=== PATIENT | female | born 1970 | race Caucasian/White ===

== ENCOUNTER 2025-03-05 04:03 | Emergency (ER) | payer OTHER, SELFPAY ==
[2025-03-05 04:08] VITALS: BP 114/77
--- NOTE | 2025-03-05 04:52 | ED.GENMED ---
History of Present Illness
General
Chief Complaint: Urinary Symptoms
Time Seen by Provider: 03/05/25 04:52
History of Present Illness
History of Present Illness:
TIME OF INITIAL EVALUATION
- 4:55 AM
REVIEW OF OLD RECORDS
- The patient has had ITP. No significant old records in [facility] available for review.
Note:
CHIEF COMPLAINT(S)
Frequent urination with pain and bleeding.
HISTORY OF PRESENT ILLNESS
The patient is a 54-year-old female who reports waking up around 2:00 AM with frequent urination, approximately every five minutes, accompanied by significant pain in the vaginal region. Around 3:00 AM, the patient noticed blood upon wiping.
Considering these symptoms, she presented to the emergency department. The patient has a history of idiopathic thrombocytopenic purpura (ITP) with platelet levels typically around 100,000 per microliter, which she describes as stable. She denies any
current rash or petechiae. The patient is uncertain whether the source of bleeding is urinary or vaginal. Upon examination, she reports a decrease in pain intensity to a level of 5 out of 10. She denies any back pain and, upon abdominal examination,
reports no significant tenderness.
PHYSICAL EXAM
- General: Well appearing in no distress
- HEENT: Moist oral mucosa
- Abdomen: Soft with no peritoneal signs, no tenderness, no CVA tenderness
- : With front edger in room, registration, bimanual exam was performed which was unremarkable, there was no blood in the vagina noted
- Neurologic: Excellent strength all extremities, no coordination deficits
- Psychiatric: Appropriate mental status, normal insight and judgement
- Extremities: Nontender, no edema, moves all extremities equally
- Skin: No rash, no lesions
PROBLEM LIST
- Acute: Suspected urinary tract infection with possible hematuria.
PLAN
A urine sample has been collected and sent for analysis. The plan is to re-evaluate the patient once the urine test results are available to determine the presence of a urinary tract infection and to guide further management.
DIFFERENTIAL DIAGNOSIS
The Differential Diagnosis includes, in no particular order and is not limited to:
1. Urinary Tract Infection
2. Hemorrhagic Cystitis
3. Vaginal Atrophy or Lesions
4. Urethral Diverticulum
5. Interstitial Cystitis
6. Bladder Tumor
7. Nephrolithiasis
8. Gynecological Malignancy
9. Coagulation Disorder (given history of ITP)
10. Vaginal Infection
RADIOLOGY
- Not indicated
EKG
-
LABS
- Urinalysis shows signs of blood and infection
UPDATE
-SUMMARY OF ENCOUNTER
The patient, a 54-year-old female with a history of idiopathic thrombocytopenic purpura (ITP), presented to the emergency department with frequent urination, pain, and bleeding. Urinalysis indicated signs of blood and infection, leading to the
diagnosis of hemorrhagic cystitis. The plan included the administration of cefalexin and the prescription of phenazopyridine for pain management.
DISPOSITION
Discharge.
ASSESSMENT
The patient is suspected to have hemorrhagic cystitis, likely secondary to a urinary tract infection (UTI). The bleeding could be exacerbated by her history of ITP, although her platelet levels are generally stable.
EMERGENCY TREATMENTS ADMINISTERED
The patient received an initial dose of cefalexin in the emergency department.
PLAN
The patient was prescribed a course of cefalexin to address the infection and phenazopyridine for pain relief. Arrange follow-up with a urologist to evaluate the persistent microscopic hematuria. Encourage the patient to return if there is excessive
bleeding or if she feels unwell.
INDEPENDENT REVIEW OF LABS AND INTERPRETATION OF TESTS
My independent review of urinalysis is the presence of blood and signs of infection.
PATIENT EDUCATION AND COUNSELING
The patient was informed about the side effect of phenazopyridine, which may cause orange discoloration of the urine. She was advised to complete the full course of antibiotics and discontinue phenazopyridine once her pain subsides. Discussed that
while blood in the urine can be common with infections, follow-up with a urologist is important.
FOLLOW-UP INSTRUCTIONS
The patient was advised to schedule a follow-up appointment with a urologist. She was also instructed to return to the hospital if the bleeding becomes significant or if she experiences symptoms such as dizziness or feeling unwell.
MEDICATION RECONCILIATION
- Cefalexin prescribed to complete the infection treatment course.
- Phenazopyridine prescribed for pain management.
MEDICAL DECISION MAKING
-Complexity of Data Reviewed: Chronic conditions affecting care include idiopathic thrombocytopenic purpura (ITP). Differential diagnosis list considered:
1. Urinary Tract Infection
2. Hemorrhagic Cystitis
3. Vaginal Atrophy or Lesions
4. Urethral Diverticulum
5. Interstitial Cystitis
6. Bladder Tumor
7. Nephrolithiasis
8. Gynecological Malignancy
9. Coagulation Disorder
10. Vaginal Infection
-Data:
Category 1
My independent review of urinalysis indicates blood in the urine as well as signs of infection.
-Risk:
Prescription medication was prescribed, including cefalexin and phenazopyridine. The potential for complications from the UTI due to the patients ITP history was considered, but her stable platelet count suggests that she is presently safe for
outpatient care with close follow-up.
DIAGNOSIS
- Hemorrhagic cystitis (ICD-10: N30.81)
- Urinary tract infection (ICD-10: N39.0)
Phy Exam
Physical Exam
Physical Exam:
See HPI
Course
Orders/Labs/Results
Orders:
Orders
03/05/25 04:18
Urinalysis Reflex To Culture Urgent
Date Specimen was Collected: 03/05/25
Time Specimen was Collected: 04:13
Urine Microscopic Reflex Cult Urgent
Urine Culture Urgent
MANOJ Source: U
Specimen Description:
Date Specimen was Collected: 03/05/25
Time Specimen was Collected: 04:13
03/05/25 05:12
Cephalexin Monohydrate [Keflex] 500 mg PO NOW STA
Phenazopyridine HCl [Pyridium] 200 mg PO NOW STA
Abnormal Lab Results
03/05/25
04:18
Ur Occult Blood Reflex 4+ A
(Negative)
Leukocyte Esterase Rfl 3+ A
(Negative)
Urine Albumin (Reflex) 3+ A
(Neg - Trace)
Vital Signs
Initial and Last Documented VS:
Initial Vital Signs
Temp Pulse Resp BP Pulse Ox
36.6 C 70 14 114/77 98
03/05/25 04:08 03/05/25 04:08 03/05/25 04:08 03/05/25 04:08 03/05/25 04:08
Last Documented Vital Signs
Temp Pulse Resp BP Pulse Ox
36.6 C 70 14 114/77 98
03/05/25 04:08 03/05/25 04:08 03/05/25 04:08 03/05/25 04:08 03/05/25 04:54
*Pulse Oximetry
SaO2: 98
Oxygen Mode of Delivery: Room air
Patient hypoxic: no
*Critical Care Note
Total Time (30-74mins, 75-104mins- exclusive of procedures): Not Applicable
ED Attending Note
-
Portions of this chart may have been created with voice recognition software.� Occasional wrong word or��sound alike� substitutions may have occurred due to the inherent limitations of voice recognition software.
Discharge Plan
Departure
Patient Disposition: Home (Routine Discharge)
Date of Disposition: 03/05/25
Time of Disposition: 05:13
Patient with high blood pressure during this ER visit?: Yes
Discharge Problem:
Acute hemorrhagic cystitis
Prescriptions:
New
cephalexin 500 mg tablet
500 mg PO TID Qty: 21 0RF
phenazopyridine [Pyridium] 200 mg tablet
200 mg PO TID PRN (Reason: Pain) Qty: 6 0RF
Referrals:
Clarence Hall MD [Active, Urology]
UNKNOWN - PT DOES,NOT KNOW [Family Provider]
Activity Restrictions/Additional Instructions:
I have given you the contact information for a local urologist to follow-up with, Dr. Hall. Return here if worse or other concerns.
Interventions
Interventions:
*Risk Screen - Suicide Last Done: 03/05/25 04:08
*General Assessment Last Done: 03/05/25 05:05
*Neglect/Abuse Screening Last Done: 03/05/25 05:05
*ED- Fall Risk Assessment Last Done: 03/05/25 05:05
ED-Female Genitourinary Assessment Last Done: 03/05/25 05:08
Discharge Date and Time
Print Language: BENGALI
[2025-03-05 04:57] LABS: Urine Character Bloody (Clear)
[2025-03-05 05:05] VITALS: BMI 21.9
[2025-03-05] MEDS: KEFLEX 500 MG PO (05:17)
[2025-03-05 05:20] VITALS: BP 119/63
[2025-03-05 05:23] LABS: Urine Red Blood Cell >100 /HPF (0-2); Urine Squamous Cell None seen /LPF (Few); Urine White Cell 0-2 /HPF (0-5)
== END 2025-03-05 05:30 | disposition home or self-care (01) ==
LOC: EMR 04:03
PROVIDERS: EMERGENCY PHYSICIAN Emergency Medicine
DX: N30.01 Acute cystitis with hematuria (principal); R31.29 Other microscopic hematuria; R03.0 Elevated blood-pressure reading, without diagnosis of hypertension; D69.3 Immune thrombocytopenic purpura; Z88.0 Allergy status to penicillin
CPT/HCPCS: 99283; 81003; 81015; 87077; 87086; 87186

== ENCOUNTER → 2025-05-17 07:57 | Outpatient (REF) | payer OTHER, SELFPAY | LOC: WDC 07:57 | PROVIDERS: ATTENDING PHYSICIAN Family Medicine | DX: Z12.31 Encounter for screening mammogram for malignant neoplasm of breast (principal) | CPT/HCPCS: 77063; 77067 ==

== ENCOUNTER → 2025-05-18 08:20 | Outpatient (REF) | payer OTHER, SELFPAY | LOC: RCS 08:20 | PROVIDERS: ATTENDING PHYSICIAN Family Medicine | DX: I49.1 Atrial premature depolarization (principal) | CPT/HCPCS: 93225; 93226 ==

== ENCOUNTER → 2025-05-19 08:03 | Outpatient (REF) | payer OTHER, SELFPAY ==
[2025-05-19 08:48] LABS: Hematocrit 40.9 % (37.0-47.0); Hemoglobin 13.7 g/dL (12.0-16.0); Mean Corp Hgb Conc. 33.5 g/dL (33.0-37.0); Mean Corpuscular Volume 94.0 fL (81.0-99.0); Nucleated Red Blood Cells % 0 %; Platelet Count 113 10^3/uL (130-400); Red Cell Dist. Width 12.1 % (11.5-14.5)
[2025-05-19 10:40] LABS: ALT (SGPT) 28 U/L (0-35); AST (SGOT) 28 U/L (14-36); Albumin 4.4 g/dl (3.5-5.0); Alkaline Phosphatase 71 U/L (38-126); Blood Urea Nitrogen 20 mg/dl (7-17); Calcium 9.5 mg/dl (8.4-10.2); Carbon Dioxide 29 mmol/L (22-30); Chloride 104 mmol/L (98-107); Glucose 92 mg/dl (70-99); HDL Cholesterol 82 mg/dl; LDL Cholesterol, Calculated 110 mg/dl; Potassium 4.6 mmol/L (3.5-5.1); Sodium 137 mmol/L (135-145); Total Protein 6.6 g/dl (6.3-8.2); Very Low Density Lipoprotein 13 mg/dl (0-30); eGFR > 60.00
[2025-05-19 11:52] LABS: Folate 16.2 ng/ml (2.76-20); Vitamin B12 > 1000 pg/ml (239-931)
== END ==
LOC: REG 08:03
PROVIDERS: ATTENDING PHYSICIAN Family Medicine
DX: R79.89 Other specified abnormal findings of blood chemistry (principal); I49.1 Atrial premature depolarization; D69.3 Immune thrombocytopenic purpura; D72.819 Decreased white blood cell count, unspecified; K58.1 Irritable bowel syndrome with constipation
CPT/HCPCS: 36415; 80053; 80061; 82607; 82746; 84443; 85025

== ENCOUNTER → 2025-07-04 07:52 | Outpatient (REF) | payer OTHER, SELFPAY ==
[2025-07-04 09:07] LABS: Hematocrit 41.9 % (37.0-47.0); Hemoglobin 14.1 g/dL (12.0-16.0); Mean Corp Hgb Conc. 33.7 g/dL (33.0-37.0); Mean Corpuscular Volume 94.2 fL (81.0-99.0); Nucleated Red Blood Cells % 0 %; Platelet Count 127 10^3/uL (130-400); Red Cell Dist. Width 12.3 % (11.5-14.5)
[2025-07-04 10:22] LABS: Blood Urea Nitrogen 16 mg/dl (7-17); Calcium 9.9 mg/dl (8.4-10.2); Carbon Dioxide 27 mmol/L (22-30); Chloride 105 mmol/L (98-107); Glucose 91 mg/dl (70-99); Potassium 4.5 mmol/L (3.5-5.1); Sodium 142 mmol/L (135-145); eGFR > 60.00
== END ==
LOC: REG 07:52
PROVIDERS: ATTENDING PHYSICIAN Orthopaedic Surgery Hand Surgery; FAMILY PHYSICIAN Family Medicine
DX: Z01.818 Encounter for other preprocedural examination (principal)
CPT/HCPCS: 36415; 80048; 85025

== ENCOUNTER → 2025-07-29 19:59 | Outpatient (REF) | payer OTHER, SELFPAY | LOC: PAVMRI 19:59 | PROVIDERS: ATTENDING PHYSICIAN Orthopaedic Surgery; FAMILY PHYSICIAN Family Medicine | DX: M25.551 Pain in right hip (principal) | CPT/HCPCS: 73721 ==

== ENCOUNTER → 2025-08-10 07:44 | Outpatient (REF) | payer OTHER, SELFPAY ==
[2025-08-10 09:18] LABS: Hematocrit 42.7 % (37.0-47.0); Hemoglobin 14.3 g/dL (12.0-16.0); Mean Corp Hgb Conc. 33.5 g/dL (33.0-37.0); Mean Corpuscular Volume 92.6 fL (81.0-99.0); Red Cell Dist. Width 12.1 % (11.5-14.5)
[2025-08-10 09:19] LABS: Nucleated Red Blood Cells % 0 %
[2025-08-10 09:57] LABS: Platelet Count 139 10^3/uL (130-400)
[2025-08-10 16:43] LABS: Vitamin B12 973 pg/ml (239-931)
== END ==
LOC: REG 07:44
PROVIDERS: ATTENDING PHYSICIAN Family Medicine
DX: R79.89 Other specified abnormal findings of blood chemistry (principal); D72.819 Decreased white blood cell count, unspecified
CPT/HCPCS: 36415; 82607; 85025

== ENCOUNTER → 2025-08-23 17:29 | Outpatient (REF) | payer OTHER, SELFPAY | LOC: MRI 3T 17:29 | PROVIDERS: ATTENDING PHYSICIAN Family Medicine | DX: K86.2 Cyst of pancreas (principal) | CPT/HCPCS: 74183; A9575 ==